=== PATIENT | male | born 1950 ===

== ENCOUNTER 2022-05-10 08:53 | Observation (INO) ==
[2022-05-10] MEDS ORDERED: SODIUM CHLORIDE 0.9% 1,000 ML IV STA (09:46)
[2022-05-10 10:03] LABS: Basophils % 0.2 % (0.0-0.8); Eosinophils % 0.1 % (0.00-10.9); Hematocrit 32.3 VOL% (42.0-52.0); Immature Granulocytes % 0.4 %; Immature Granulocytes Absolute 0.04 #; Lymphocytes # 0.4 10*3/uL (1.4-4.0); Lymphocytes % 4.6 % (21.2-54.2); Mean Corpuscular HGB Conc 28.5 GM/DL (32-36); Mean Platelet Volume 10.5 FL (9.6-12.0); Monocytes # 0.6 10*3/uL (0.11-0.8); Monocytes % 6.7 % (1.7-12.7); Platelet Count 286 T/CUMM (130-400); Red Blood Count 4.04 MC/CUMM (3.8-5.5); Red Cell Distribution Width 19.8 % (9.3-17.3); White Blood Count 9.5 T/CUMM (4-12)
[2022-05-10 10:04] LABS: Hemoglobin 9.2 GM/DL (14.0-18.0)
[2022-05-10 10:10] LABS: PT Patient Result 11.2 SECS (10.5-12.0); Partial Thromboplastin Time 34.3 SECS (23.7-32.9)
[2022-05-10 10:15] LABS: Albumin 3.5 G/DL (3.4-5.0); Bilirubin,Total 0.4 MG/DL (0.20-1.00); Calcium 9.7 MG/DL (8.5-10.1); Osmolality,Calculated 278.7 MOS/KG (273-304); Potassium 3.6 MMOL/L (3.5-5.1)
[2022-05-10 10:38] LABS: Hypochromia 1+; Lymphocytes 6 % (20-55); Microcytosis 1+; Platelet Estimate Adequate; Total Cells Counted 100
[2022-05-10] MEDS ORDERED: GLUCAGON 1 MG VIAL IM PRN (12:33)
[2022-05-10] MEDS ORDERED: MORPHINE 2 MG/1 ML SYRINGE IV PRN (12:33)
[2022-05-10] MEDS ORDERED: DOCUSATE SODIUM 100 MG CAPSULE PO PRN (12:33)
[2022-05-10] MEDS ORDERED: ACETAMINOPHEN 325 MG TABLET PO PRN (12:33)
[2022-05-10] MEDS ORDERED: ALUMINUM/MAGNES/SIMETH MAX STR 30 ML UDCUP PO PRN (12:33)
[2022-05-10] MEDS ORDERED: LACTULOSE 20 GM/30 ML UDCUP PO PRN (12:33)
[2022-05-10] MEDS ORDERED: ONDANSETRON 4 MG/2 ML VIAL IV PRN (12:33)
[2022-05-10] MEDS ORDERED: DEXTROSE 10% 250 ML BAG IV PRN (12:38)
[2022-05-10] MEDS ORDERED: ALUM/MAG/SIMETH/LIDO VISC 1:1 30 ML BOTTLE PO STA (13:20)
[2022-05-10] MEDS: FUROSEMIDE 20 MG TABLET PO SCH (16:50)
[2022-05-10] MEDS: INSULIN LISPRO 100 UNIT/ML SUBCUT SCH ×2 (18:16→21:56)
[2022-05-10] MEDS ORDERED: LATANOPROST 0.005% OPH SOLN 2.5 ML BOTTLE BOTH EYES SCH (21:00)
[2022-05-10] MEDS ORDERED: TAMSULOSIN 0.4 MG CAPSULE PO SCH (21:00)
[2022-05-10] MEDS: METOPROLOL TARTRATE 50 MG TABLET PO SCH (21:54)
[2022-05-10] MEDS: APIXABAN 5 MG TABLET PO SCH (21:54)
[2022-05-10] MEDS: busPIRone 5 MG TABLET PO SCH (21:55)
[2022-05-10] MEDS: POLYVINYL ALCOHOL 1.4% OPH SOLN 15 ML BOTTLE BOTH EYES SCH (21:56)
[2022-05-11 05:27] LABS: Basophils % 0.4 % (0.0-0.8); Eosinophils # 0.2 10*3/uL (0.0-0.87); Eosinophils % 3.7 % (0.00-10.9); Hematocrit 28.8 VOL% (42.0-52.0); Hemoglobin 8.3 GM/DL (14.0-18.0); Immature Granulocytes % 0.4 %; Immature Granulocytes Absolute 0.02 #; Lymphocytes # 1.5 10*3/uL (1.4-4.0); Lymphocytes % 27.1 % (21.2-54.2); Mean Corpuscular HGB Conc 28.8 GM/DL (32-36); Mean Corpuscular Volume 79.8 FL (87-102); Mean Platelet Volume 10.7 FL (9.6-12.0); Monocytes # 0.6 10*3/uL (0.11-0.8); Monocytes % 11.2 % (1.7-12.7); Neutrophils % 57.2 % (38.7-73.9); Platelet Count 275 T/CUMM (130-400); Red Blood Count 3.61 MC/CUMM (3.8-5.5); Red Cell Distribution Width 19.9 % (9.3-17.3); White Blood Count 5.5 T/CUMM (4-12)
[2022-05-11 05:57] LABS: Alanine Aminotransferase 14 U/L (16-61); Albumin 2.8 G/DL (3.4-5.0); Alkaline Phosphatase 86 U/L (45-117); Aspartate Amino Transferase 17 U/L (0-37); Bilirubin,Total < 0.39 MG/DL (0.20-1.00); Blood Urea Nitrogen 14 MG/DL (7-18); Carbon Dioxide 32 MMOL/L (21-32); Chloride 107 MMOL/L (98-107); Cholesterol 115 MG/DL (50-200); Glucose 84 MG/DL (74-106); HDL Cholesterol 36 MG/DL (40-60); Osmolality,Calculated 282.1 MOS/KG (273-304); Potassium 3.9 MMOL/L (3.5-5.1); Risk Ratio 3.19; Sodium 142 MMOL/L (136-145); Thyroid Stimulating Hormone 0.945 uIU/ml (0.358-3.74); Total Protein 6.5 G/DL (6.4-8.2); Triglycerides 56 MG/DL (2-150); VLDL Cholesterol 11.2 MG/DL
[2022-05-11] MEDS: INSULIN LISPRO 100 UNIT/ML SUBCUT SCH ×2 (07:46→12:22)
[2022-05-11] MEDS ORDERED: ASPIRIN EC 81 MG TABLET PO SCH (09:00)
[2022-05-11] MEDS ORDERED: PANTOPRAZOLE 40 MG TABLET PO SCH (09:00)
[2022-05-11] MEDS ORDERED: MULTIVITAMIN (CENTRUM) TABLET PO SCH (09:00)
[2022-05-11] MEDS ORDERED: amLODIPine 10 MG TABLET PO SCH (09:00)
[2022-05-11] MEDS ORDERED: CHOLECALCIFEROL 1,000 UNIT TABLET PO SCH (09:00)
[2022-05-11] MEDS ORDERED: CALCIUM (CARBONATE) 500 MG TABLET PO SCH (09:00)
[2022-05-11] MEDS: APIXABAN 5 MG TABLET PO SCH (11:23)
[2022-05-11] MEDS: FUROSEMIDE 20 MG TABLET PO SCH (11:24)
[2022-05-11] MEDS: busPIRone 5 MG TABLET PO SCH (11:24)
[2022-05-11] MEDS: POLYVINYL ALCOHOL 1.4% OPH SOLN 15 ML BOTTLE BOTH EYES SCH ×2 (11:24→13:09)
[2022-05-11] MEDS: METOPROLOL TARTRATE 50 MG TABLET PO SCH (12:16)
[2022-05-11 12:45] VITALS: BP 113/59
== END 2022-05-11 14:20 ==
LOC: EDBD → EDUNIT# → N.EDINP 08:53 → N.ED 08:53 → N.EDINP 16:56 → N.TELES 17:01
PROVIDERS: ADMIT Internal Medicine; ATTEND Internal Medicine